=== PATIENT | male | born 1975 | race Caucasian/White ===

== ENCOUNTER 2022-09-24 15:03 | Emergency (ER) | payer SELFPAY ==
[2022-09-24] VITALS (12 sets, daily range): BP systolic 94–238; BP diastolic 75–140; PULSE 80–120; RESP 18–22; TEMP 36.5–36.6; O2SAT 95–100; BMI 24.4
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
[2022-09-24 16:47] LABS: Alanine Aminotransferase 36 U/L (12-78); Albumin Level 4.4 g/dl (3.5-5.0); Alkaline Phosphatase 87 U/L (38-126); Anion Gap 15.8 mEq/L (5-15); Aspartate Amino Transferase 34 U/L (17-59); Bilirubin,Total 0.7 mg/dl (0.2-1.3); Blood Urea Nitrogen 11 mg/dl (9-20); Carbon Dioxide 25 mmol/L (22.0-30.0); Chloride 106 mmol/L (98-107); Creatinine Clearance Estimated 84 mL/min (50-200); Estimated Glomerular Filt Rate 59 ml/min (>60); GFR (African American) 72 ML/MIN (>60); Globulin 4.4 g/dL (1.3-3.2); Glucose 111 mg/dl (74-100); Potassium 3.8 mmoL/L (3.5-5.1); Sodium 143 mmol/L (136-145); Total Protein,Serum 8.8 g/dl (6.3-8.2)
[2022-09-24 16:49] LABS: Activated Partial Thrombo Time 26.3 seconds (22.8-30.6); INR 1.06 (0.9-1.1); Prothrombin Time 11.4 seconds (10.1-12.5)
--- NOTE | 2022-09-24 17:11 | PC.NURSE ---
called [facility] pharmacy to confirm procured dose of ketamine per ivp. Spoke with Nitish, confirmed 30mg (0.6ml of 50mg/1ml syringe) IVP 1x dose to give. Pt Prepped for procedure, explained procedure and pt agrees, CO2 monitoring applied, and consent signed.
--- NOTE | 2022-09-24 17:43 | PC.NURSE ---
[facility] called to check for stand-by status. MD is still at bedside for procedure. [facility] state they are OK to still be on stand-by.
--- NOTE | 2022-09-24 17:48 | PC.NURSE ---
calling [facility] for transfer
--- NOTE | 2022-09-24 18:31 | PC.NURSE ---
Dr Barlow accepted pt ED--->ED. [facility] called for transport. 25min ETA supervisor of communications notified
--- NOTE | 2022-09-24 18:33 | PC.NURSE ---
calling report to charge
--- NOTE | 2022-09-24 18:46 | PC.NURSE ---
[facility] advised 24 min ETA
--- NOTE | 2022-09-24 21:35 | PC.NURSE ---
faxed information to [facility] at their request. received call stating no information had been given to them. [phone]
== END 2022-09-24 20:18 | disposition short-term general hospital (02) ==
PROVIDERS: Emergency Provider Emergency Medicine
DX: M79.652 Pain in left thigh (principal); M79.645 Pain in left finger(s); S02.832A Fracture of medial orbital wall, left side, initial encounter for closed fracture; S02.2XXA Fracture of nasal bones, initial encounter for closed fracture; S02.32XA Fracture of orbital floor, left side, initial encounter for closed fracture; S01.112A Laceration without foreign body of left eyelid and periocular area, initial encounter; Z23 Encounter for immunization; Y00.XXXA Assault by blunt object, initial encounter
CPT/HCPCS: 70450; 70480; 70486; 72125; 73120; 80053; 85610; 85730; 90715; 96374; 96375; 99152; 99153; 99291